=== PATIENT | male | born 1930 | race Caucasian/White ===

== ENCOUNTER 2018-05-20 05:55 | Inpatient (IN) | payer MEDICARE ==
[2018-05-20] MEDS ORDERED: FUROSEMIDE 10 MG/ML 2 ML VIAL IV SCH (09:00)
--- NOTE | 2018-05-20 09:21 | XR ---
EXAMINATION TYPE: XR chest 1V portable DATE OF EXAM: 05/20/2018 HISTORY: Shortness of breath. COMPARISON: 11/04/2013 TECHNIQUE: Single view of the chest is submitted. FINDINGS: Demonstrated are scattered senescent parenchymal change. There is no evidence for focal infiltrate. Pulmonary venous congestion without overt failure. The heart is stable. Hilar and mediastinal structures are within normal limits. Degenerative changes are seen of the dorsal spine. IMPRESSION: 1. Chronic changes without evidence for acute pulmonary disease.
[2018-05-20] MEDS: PANTOPRAZOLE 40 MG TABLET PO SCH (10:05)
[2018-05-20] MEDS: APIXABAN 2.5 MG TABLET PO SCH ×2 (10:05→21:12)
[2018-05-20] MEDS: METOPROLOL TARTRATE 25 MG TAB PO SCH ×2 (10:05→21:12)
[2018-05-20] MEDS: ISOSORBIDE MONONITRATE ER 30 MG TAB.ER.24H PO SCH (10:06)
[2018-05-20] MEDS: VALSARTAN 160 MG TAB PO SCH (10:06)
[2018-05-20 10:09] LABS: Creatine Kinase MB 6.1 ng/mL (0.0-2.4)
[2018-05-20] MEDS: CALCIUM CARB-VIT D 500MG-200UN 1 EACH TAB PO SCH (12:43)
[2018-05-20 12:46] LABS: Glucose,Whole Blood 135 mg/dL (75-99)
--- NOTE | 2018-05-20 13:09 | P.CRDCN ---
History of Present Illness Consult date: 05/20/18 History of present illness: This is a 88-year-old gentleman with history of previous myocardial infarctions , bypass surgery and also stent placement. Patient also has history of previous CVA with right-sided weakness. Patient also is on and decortication therapy. He follows regularly with Dr. Jeter. Apparently yesterday patient appeared to be short of breath. His daughter took him to the emergency room. On the x-ray. It was felt that patient may have pneumonia. Patient is also coughing. Patient was brought in here for further evaluation. Patient has been afebrile since admission here. His blood pressure is 117/76. His aspirin saturations 94%. He is being treated for possible pneumonia. We're asked to see the patient because of elevated first troponin done at [facility]. We don't have any subsequent troponins available at this time. No history of any chest pain. No acute changes on EKGs. We'll continue his current medical therapy. We'll follow his cardiac enzymes studies. 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 UROSTOMY. 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; 10/22/2013 C-DIFF MDRO Source:: Urine-VRE; [id number] Past Surgical History: Appendectomy, Coronary Bypass/CABG, Hernia Repair, Tonsillectomy Additional Past Surgical History / Comment(s): UROSTOMY, WAYNE INGUINAL HERNIA REPAIR, cardiac catheterization with previous PCI's Past Anesthesia/Blood Transfusion Reactions: No Reported Reaction Past Psychological History: No Psychological Hx Reported Smoking Status: Never smoker Past Alcohol Use History: None Reported Past Drug Use History: None Reported - Past Family History Father Additional Family Medical History / Comment(s): MASSIVE HEART ATTACK Brother(s) Additional Family Medical History / Comment(s): MASSIVE HEART ATTACK Mother Family Medical History: Diabetes Mellitus Additional Family Medical History / Comment(s): HARDENING OF ARTERIES Medications and Allergies Home Medications Medication Instructions Recorded Confirmed Type Apixaban [Eliquis] 2.5 mg PO BID #1 tab 11/09/13 05/20/18 Rx Albuterol Nebulized [Ventolin 2.5 mg INHALATION RT-Q6H PRN 05/20/18 05/20/18 History Nebulized] Cholecalciferol [Vitamin D3] 1,000 unit PO DAILY 05/20/18 05/20/18 History Glimepiride [Amaryl] 1 mg PO AC-BRKFST 05/20/18 05/20/18 History Isosorbide Mononitrate ER [Imdur] 30 mg PO DAILY 05/20/18 05/20/18 History Metoprolol Tartrate [Lopressor] 25 mg PO BID 05/20/18 05/20/18 History Omeprazole Magnesium [PriLOSEC OTC] 20 mg PO DAILY 05/20/18 05/20/18 History Valsartan [Diovan] 160 mg PO DAILY 05/20/18 05/20/18 History metFORMIN HCL 500 mg PO HS 05/20/18 05/20/18 History Allergies Allergy/AdvReac Type Severity Reaction Status Date / Time No Known Allergies Allergy Verified 05/20/18 08:58 Physical Exam Vitals: Vital Signs Temp Pulse Resp BP Pulse Ox 05/20/18 11:55 64 16 05/20/18 11:05 64 16 117/78 93 L 05/20/18 08:07 77 18 05/20/18 08:05 97.5 F L 77 18 117/76 94 L Intake and Output 05/19/18 05/20/18 05/20/18 22:59 06:59 14:59 Other: Voiding Method Ileal Conduit (Right) Weight 85.5 kg GENERAL EXAM: Patient is alert and oriented and doesn't appear to be in any acute distress HEENT: Normocephalic. Normal reaction of pupils, equal size, normal range of extraocular motion. No erythema or exudates in the throat. NECK: No masses, no nuchal rigidity. CHEST: No chest wall deformity. LUNGS: Rales at the right base HEART: S1 and S2 normal ABDOMEN: No hepatosplenomegaly, normal bowel sounds, no guarding or rigidity. SKIN: No rashes CENTRAL NERVOUS SYSTEM: Right-sided weakness EXTREMITIES: No cyanosis, clubbing or edema. Results Cardiac Enzymes 05/20/18 Range/Units 09:17 CK-MB (CK-2) 6.1 H (0.0-2.4) ng/mL Current Medications Generic Name Dose Route Start Last Admin Trade Name Freq PRN Reason Stop Dose Admin Apixaban 2.5 mg 05/20/18 09:00 05/20/18 10:05 Eliquis PO 2.5 mg BID ANNA Administration Calcium Carbonate 1 each 05/20/18 09:00 05/20/18 12:43 Oscal 500+D PO 1 each DAILY ANNA Administration Glimepiride 1 mg 05/21/18 07:30 Amaryl PO AC-BRKFST ANNA Ceftriaxone Sodium 1,000 mg/ 50 mls @ 100 mls/hr 05/21/18 09:00 Sodium Chloride IVPB Q24HR ANNA Isosorbide Mononitrate 30 mg 05/20/18 09:00 05/20/18 10:06 Imdur PO 30 mg DAILY ANNA Administration Metformin HCl 500 mg 05/20/18 21:00 Glucophage PO HS ANNA Metoprolol Tartrate 25 mg 05/20/18 09:00 05/20/18 10:05 Lopressor PO 25 mg BID NANA Administration Pantoprazole Sodium 40 mg 05/20/18 09:00 05/20/18 10:05 Protonix PO 40 mg AC-BRKFST ANNA Administration Valsartan 160 mg 05/20/18 09:00 05/20/18 10:06 Diovan PO 160 mg DAILY ANNA Administration Intake and Output 05/19/18 05/20/18 05/20/18 22:59 06:59 14:59 Other: Voiding Method Ileal Conduit (Right) Weight 85.5 kg Patient Weight 05/21/18 06:59 Weight 85.5 kg Assessment and Plan (1) Pneumonia Current Visit: Yes Status: Acute Code(s): J18.9 - PNEUMONIA, UNSPECIFIED ORGANISM SNOMED Code(s): 410452173 (2) CAD (coronary artery disease) Current Visit: No Status: Acute Code(s): I25.10 - ATHSCL HEART DISEASE OF [place] CORONARY ARTERY W/O ANG PCTRS SNOMED Code(s): 407917528 (3) CVA (cerebrovascular accident) Current Visit: No Status: Acute Code(s): I63.9 - CEREBRAL INFARCTION, UNSPECIFIED SNOMED Code(s): 314677910 (4) Ischemic cardiomyopathy Current Visit: No Status: Acute Code(s): I25.5 - ISCHEMIC CARDIOMYOPATHY SNOMED Code(s): 651787744 (5) Elevated troponin Current Visit: Yes Status: Acute Code(s): R74.8 - ABNORMAL LEVELS OF OTHER SERUM ENZYMES SNOMED Code(s): 739808985 (6) Elevated troponin Current Visit: Yes Status: Acute Code(s): R74.8 - ABNORMAL LEVELS OF OTHER SERUM ENZYMES SNOMED Code(s): 165482374 Plan: Patient seemed to be comfortable at this time. Continue current medical therapy. Follow Cardec enzymes studies. Echo Doppler study in a.m.
--- NOTE | 2018-05-20 14:46 | P.HPIM ---
History of Present Illness H&P Date: 05/20/18 Chief Complaint: Difficulty in breathing Patient is a 88-year-old male with a known history of CVA with residual right- sided weakness and dysarthria 5 years ago, chronic atrial fibrillation on anticoagulation, coronary artery disease, CABG and stent placement, hypertension , hyperlipidemia and diabetes type 2 [id number] initially presented to [facility] with her daughter due to complaints of difficulty in breathing. Patient was also having cough with some clear sputum production. Denied any chest pain. No fever no chills. No nausea vomiting or abdominal pain. No leg swelling. Patient has been having runny nose since stroke but no new changes noted. No nausea vomiting or diarrhea. Patient had chest x-ray done at [facility] showed possible pneumonia. Linear scarring or atelectasis is present at the lung bases. EKG showed atrial fibrillation. Patient does follow with cardiology as an outpatient with Dr. Burgos. Patient was also given a dose of antibiotics at [facility] and transferred to [facility] due to slightly elevated troponin level. BNP was 8622. Troponin 0.435, BUN and 19 and creatinine 1.5, lactic acid level III.7, d- dimer level 0.4 and 1 not elevated, WBC 10.5 hemoglobin 13.7 and platelets 331 Patient was given a dose of ceftriaxone and blood cultures were sent at [facility]. Due to elevated troponin level and possible CHF patient was transferred to [facility] for further evaluation by cardiology. Influenza antigen negative. chest x-ray showed pulmonary venous congestion without overt heart failure. Chronic changes. No acute changes noted. patient does not have a history of smoking. Review of Systems Patient is nonverbal and his arthritic due to previous CVA. Unable to provide history at this time. Most of the history was taken from medical records and patient's daughter at bedside. 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 UROSTOMY. 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; 10/22/2013 C-DIFF MDRO Source:: Urine-VRE; [id number] Past Surgical History: Appendectomy, Coronary Bypass/CABG, Hernia Repair, Tonsillectomy Additional Past Surgical History / Comment(s): UROSTOMY, WAYNE INGUINAL HERNIA REPAIR, cardiac catheterization with previous PCI's Past Anesthesia/Blood Transfusion Reactions: No Reported Reaction Past Psychological History: No Psychological Hx Reported Smoking Status: Never smoker Past Alcohol Use History: None Reported Past Drug Use History: None Reported - Past Family History Father Additional Family Medical History / Comment(s): MASSIVE HEART ATTACK Brother(s) Additional Family Medical History / Comment(s): MASSIVE HEART ATTACK Mother Family Medical History: Diabetes Mellitus Additional Family Medical History / Comment(s): HARDENING OF ARTERIES Medications and Allergies Home Medications Medication Instructions Recorded Confirmed Type Apixaban [Eliquis] 2.5 mg PO BID #1 tab 11/09/13 05/20/18 Rx Albuterol Nebulized [Ventolin 2.5 mg INHALATION RT-Q6H PRN 05/20/18 05/20/18 History Nebulized] Cholecalciferol [Vitamin D3] 1,000 unit PO DAILY 05/20/18 05/20/18 History Glimepiride [Amaryl] 1 mg PO AC-BRKFST 05/20/18 05/20/18 History Isosorbide Mononitrate ER [Imdur] 30 mg PO DAILY 05/20/18 05/20/18 History Metoprolol Tartrate [Lopressor] 25 mg PO BID 05/20/18 05/20/18 History Omeprazole Magnesium [PriLOSEC OTC] 20 mg PO DAILY 05/20/18 05/20/18 History Valsartan [Diovan] 160 mg PO DAILY 05/20/18 05/20/18 History metFORMIN HCL 500 mg PO HS 05/20/18 05/20/18 History Allergies Allergy/AdvReac Type Severity Reaction Status Date / Time No Known Allergies Allergy Verified 05/20/18 08:58 Physical Exam Vitals: Vital Signs Temp Pulse Resp BP Pulse Ox 05/20/18 11:55 64 16 05/20/18 11:05 64 16 117/78 93 L 05/20/18 08:07 77 18 05/20/18 08:05 97.5 F L 77 18 117/76 94 L Intake and Output 05/19/18 05/20/18 05/20/18 22:59 06:59 14:59 Other: Voiding Method Ileal Conduit (Right) Weight 85.5 kg PHYSICAL EXAMINATION: Patient is lying in the bed comfortably, no acute distress, awake alert and oriented but cannot communicate.. HEENT: Normocephalic. Neck is supple. Pupils reactive. Nostrils clear. Oral cavity is moist. Ears reveal no drainage. Neck reveals no JVD, carotid bruits, or thyromegaly. CHEST EXAMINATION: Trachea is central. Symmetrical expansion. Bibasilar diminished air entry. Lung min clear to auscultation and percussion. CARDIAC: Normal S1, S2 with no gallops. No murmurs ABDOMEN: Soft. Bowel sounds normal. No organomegaly. No abdominal bruits. Extremities: reveal no edema. No clubbing or cyanosis Neurologically awake, alert,. Right-sided weakness. Dysarthria. Skin: No rash or skin lesions. Psychiatric: Coperative. Could not be assessed completely. Musculoskeletal: No joint swelling or deformity. Normal range of motion. Results Labs: Abnormal Lab Results - Last 24 Hours (Table) 05/20/18 05/20/18 05/20/18 Range/Units 09:17 09:17 12:20 POC Glucose (mg/dL) 135 H (75-99) mg/dL Plasma Lactic Acid Venkata 2.8 H* (0.7-2.0) mmol/L CK-MB (CK-2) 6.1 H (0.0-2.4) ng/mL Thrombosis Risk Factor Assmnt - DVT/VTE Prophylaxis DVT/VTE Prophylaxis: Pharmacologic Prophylaxis ordered - Choose All That Apply Any of the Below Risk Factors Present?: Yes Each Factor Represents 1 point: Heart failure (<1month), Obesity (BMI >25), Serious lung disease incl. pneumonia (< 1month) Each Risk Factor Represents 3 Points: Age 75 years or older Thrombosis Risk Factor Assessment Total Risk Factor Score: 6 Thrombosis Risk Factor Assessment Level: High Risk Assessment and Plan Assessment: Difficulty in breathing likely due to acute CHF. With elevated BNP and pulmonary vascular congestion. Elevated troponin level. Possible right lower lobe pneumonia Lactic acidosis Chronic atrial fibrillation on anticoagulation Coronary artery disease history of stent placement and CABG History of CVA with right-sided weakness and dysarthria. Diabetes type 2 [id number] GERD Hyperlipidemia Hypertension History of [place] DVT prophylaxis. Patient is already on full anticoagulation. Plan: Patient will be continued on aspirin, metoprolol and losartan. Patient will be continued on gentle diuresis. Empiric antibiotics. Follow up troponin trends.. Insulin sliding scale. Continue with Amaryl and hold metformin due to lactic acidosis. Follow-up renal function. Continue with home medications and further recommendations based on the clinical course. Cardiology is on board. 2-D echocardiogram was ordered. Current CODE STATUS is DO NOT RESUSCITATE/DO NOT INTUBATE. Time with Patient: Greater than 30
[2018-05-20 14:56] LABS: Creatine Kinase MB 6.6 ng/mL (0.0-2.4)
[2018-05-20 15:00] LABS: Troponin I 0.907 ng/mL (0.000-0.034)
[2018-05-20] MEDS ORDERED: SODIUM CHLORIDE 0.9% 250 ML IV SCH (15:15)
[2018-05-20 17:51] LABS: Glucose,Whole Blood 153 mg/dL (75-99)
[2018-05-20 20:19] LABS: Glucose,Whole Blood 134 mg/dL (75-99)
[2018-05-20] MEDS ORDERED: metFORMIN 500 MG TAB PO SCH (21:00)
[2018-05-20] MEDS: INSULIN ASPART 100 UNIT/ML 1 ML 10 ML VIAL SQ SCH (21:12)
[2018-05-20 23:16] LABS: Creatine Kinase MB 7.9 ng/mL (0.0-2.4); Troponin I 0.865 ng/mL (0.000-0.034)
[2018-05-21 05:17] LABS: Glucose,Whole Blood 132 mg/dL (75-99)
[2018-05-21] MEDS: GLIMEPIRIDE 1 MG TAB PO SCH (06:23)
[2018-05-21] MEDS: PANTOPRAZOLE 40 MG TABLET PO SCH (06:25)
[2018-05-21] MEDS: INSULIN ASPART 100 UNIT/ML 1 ML 10 ML VIAL SQ SCH ×4 (06:25→21:02)
[2018-05-21 07:00] LABS: Basophils % (A) 1 %; Eosinophils # (A) 0.2 k/uL (0-0.7); Eosinophils % (A) 3 %; HCT 36.9 % (39.0-53.0); HGB 12.2 gm/dL (13.0-17.5); Lymphocytes # (A) 1.8 k/uL (1.0-4.8); Lymphocytes % (A) 23 %; MCH 31.4 pg (25.0-35.0); MCV 95.3 fL (80.0-100.0); Mean Platelet Volume 6.6; Monocytes # (A) 0.6 k/uL (0-1.0); Monocytes % (A) 7 %; Neutrophils % (A) 65 %; Platelet Count 288 k/uL (150-450); RBC 3.87 m/uL (4.30-5.90); RDW 13.3 % (11.5-15.5); WBC 7.7 k/uL (3.8-10.6)
[2018-05-21 07:14] LABS: Calcium 9.3 mg/dL (8.4-10.2); Potassium 4.5 mmol/L (3.5-5.1)
[2018-05-21] MEDS: VALSARTAN 160 MG TAB PO SCH (07:58)
[2018-05-21] MEDS: ISOSORBIDE MONONITRATE ER 30 MG TAB.ER.24H PO SCH (07:59)
[2018-05-21] MEDS: APIXABAN 2.5 MG TABLET PO SCH ×2 (07:59→21:02)
[2018-05-21] MEDS: CALCIUM CARB-VIT D 500MG-200UN 1 EACH TAB PO SCH (07:59)
[2018-05-21] MEDS: METOPROLOL TARTRATE 25 MG TAB PO SCH ×2 (08:00→21:02)
[2018-05-21] MEDS ORDERED: FUROSEMIDE 10 MG/ML 2 ML VIAL IV SCH (09:00)
--- NOTE | 2018-05-21 09:43 | P.PN ---
Progress Note - Text Patient looks comfortable. No respiratory distress at this time. Admitted with shortness of breath did jenaro consulted for abnormal cardiac enzymes of 0.8 and 0.9 with an elevated lactic acid Vitals are stable he is afebrile 97.2F, pulse rate in the 60s to 80s, Blood pressure 130/90 mmHg Breath sounds are reduced bilaterally no rhonchi no crackles Heart sounds are soft Abdomen is soft Extended is warm Impression 88-year-old gentleman with a history of coronary artery disease, old myocardial infarction, Gabe stenting coronary artery bypass grafting and a history of CVA with right-sided weakness Being treated for possible pneumonia he was coughing. Suggest Continue current medications without any changes in his troponins are flat so far out treat him medically for coronary artery disease. I spoke to the nurse and asked that the Lasix be changed from IV to by mouth 40 mg by mouth daily Echo pending
--- NOTE | 2018-05-21 10:25 | ECHOF ---
Referral Reason:CHF MEASUREMENTS -------- HEIGHT: 162.6 cm WEIGHT: 79.8 kg BP: 110/52 RVIDd: 3.3 cm (< 3.3) IVSd: 1.4 cm (0.6 - 1.1) LVIDd: 5.4 cm (3.9 - 5.3) LVPWd: 1.5 cm (0.6 - 1.1) IVSs: 1.5 cm LVIDs: 5.1 cm LVPWs: 1.3 cm LA Diam: 4.8 cm (2.7 - 3.8) LAESV Index (A-L): 42.02 ml/m Ao Diam: 3.5 cm (2.0 - 3.7) AV Cusp: 0.9 cm (1.5 - 2.6) LA Diam: 4.7 cm (2.7 - 3.8) MV EXCURSION: 23.601 mm (> 18.000) MV EF SLOPE: 120 mm/s (70 - 150) EPSS: 0.7 cm MV E Enoch: 0.79 m/s MV DecT: 112 ms MV A Enoch: 0.37 m/s MV E/A Ratio: 2.15 RAP: 5.00 mmHg RVSP: 43.33 mmHg FINDINGS -------- Undetermined rhythm. This was a techncally difficult study with suboptimal views, , Lumason utilized for enhancement of im ages. The left ventricular size is normal. Left ventricular wall thickness is normal. Overall left vent ricular systolic function is moderate-severely impaired with, an EF between 30 - 35 %. Anterseptal Hypokinesis Inferiorlateral Hypokinesis Septal Hypokinesis The right ventricle is normal in size. The left atrium is markedly dilated. LA is severely dilated >40 ml/m2 The right atrial size is normal. 5.0mg OF Lumason UTLIZED: 2 OR MORE WALL SEGMENTS NOT VISUALIZED. There is no evidence of aortic regurgitation. Mild mitral annular calcification present. Govr-[id number]-ekmpavxo mitral regurgitation is present. Mild tricuspid regurgitation present. There is mild pulmonary hypertension. The right ventricular systolic pressure, as measured by Doppler, is 43.33mmHg. There is no pulmonic regurgitation present. The aortic root size is normal. There is no pericardial effusion. CONCLUSIONS -------- 1. This was a techncally difficult study with suboptimal views, , Lumason utilized for enhancement of images. 2. The left ventricular size is normal. 3. Left ventricular wall thickness is normal. 4. Overall left ventricular systolic function is moderate-severely impaired with, an EF between 30 - 35 %. 5. Anterseptal Hypokinesis 6. Inferiorlateral Hypokinesis 7. Septal Hypokinesis 8. The right ventricle is normal in size. 9. The left atrium is markedly dilated. 10. LA is severely dilated >40 ml/m2 11. The right atrial size is normal. 12. 5.0mg OF Lumason UTLIZED: 2 OR MORE WALL SEGMENTS NOT VISUALIZED. 13. Mild mitral annular calcification present. 14. Pvof-wl-lubwhgyu mitral regurgitation is present. 15. Mild tricuspid regurgitation present. 16. There is mild pulmonary hypertension. 17. The right ventricular systolic pressure, as measured by Doppler, is 43.33mmHg. 18. There is no pulmonic regurgitation present. 19. The aortic root size is normal. 20. There is no pericardial effusion. CAPTION WRITER: Niurka Mota RDCS
[2018-05-21 12:17] LABS: Glucose,Whole Blood 123 mg/dL (75-99)
[2018-05-21 14:31] VITALS: BMI 30.2
[2018-05-21 17:08] LABS: Glucose,Whole Blood 143 mg/dL (75-99)
[2018-05-21 20:56] LABS: Glucose,Whole Blood 145 mg/dL (75-99)
--- NOTE | 2018-05-21 23:04 | P.PN ---
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 Patient was also having cough with some clear sputum production. Denied any chest pain. No fever no chills. No nausea vomiting or abdominal pain. No leg swelling. Patient has been having runny nose since stroke but no new changes noted. No nausea vomiting or diarrhea. Patient had chest x-ray done at [facility] showed possible pneumonia. Linear scarring or atelectasis is present at the lung bases. EKG showed atrial fibrillation. Patient does follow with cardiology as an outpatient with Dr. Burgos. Patient was also given a dose of antibiotics at [facility] and transferred to [facility] due to slightly elevated troponin level. BNP was 8622. Troponin 0.435, BUN and 19 and creatinine 1.5, lactic acid level III.7, d- dimer level 0.4 and 1 not elevated, WBC 10.5 hemoglobin 13.7 and platelets 331 Patient was given a dose of ceftriaxone and blood cultures were sent at [facility]. Due to elevated troponin level and possible CHF patient was transferred to [facility] for further evaluation by cardiology. Influenza antigen negative. chest x-ray showed pulmonary venous congestion without overt heart failure. Chronic changes. No acute changes noted. 05/21/2018 Patient denied any complaints of chest pain. Breathing status is improved. Part spreading in physical therapy. IV Lasix has been changed to 40 mg of Lasix by mouth. Patient is being continued on IV antibiotics for possible pneumonia as well. 2-D echocardiogram was done. Otherwise no acute overnight issues. Overall clinically improving. Troponin level is trending down and lactic acidosis resolved. Tolerating oral diet. Patient is a poor historian due to dysarthria and previous history of CVA Current medications Active Medications Generic Name Dose Route Start Last Admin Trade Name Freq PRN Reason Stop Dose Admin Apixaban 2.5 mg 05/20/18 09:00 05/21/18 21:02 Eliquis PO 2.5 mg BID [facility]NA Administration Calcium Carbonate 1 each 05/20/18 09:00 05/21/18 07:59 Oscal 500+D PO Not Given DAILY [facility] Furosemide 40 mg 05/22/18 09:00 Lasix PO DAILY [facility] Glimepiride 1 mg 05/21/18 07:30 05/21/18 06:23 Amaryl PO 1 mg AC-BRKFST ANNA Administration Ceftriaxone Sodium 1,000 mg/ 50 mls @ 100 mls/hr 05/21/18 09:00 05/21/18 08: 05 Sodium Chloride IVPB 100 mls/hr Q24HR [facility] Administration Insulin Aspart 0 unit 05/20/18 21:00 05/21/18 21:02 Novolog SQ 1 unit ACHS [facility] Administration Protocol Isosorbide Mononitrate 30 mg 05/20/18 09:00 05/21/18 07:59 Imdur PO 30 mg DAILY [facility] Administration Metoprolol Tartrate 25 mg 05/20/18 09:00 05/21/18 21:02 Lopressor PO 25 mg BID ANNA Administration Pantoprazole Sodium 40 mg 05/20/18 09:00 05/21/18 06:25 Protonix PO 40 mg AC-BRKFST ANNA Administration Valsartan 160 mg 05/20/18 09:00 05/21/18 07:58 Diovan PO 160 mg DAILY [facility]NA Administration Objective - Vital Signs Vital signs: Vital Signs Temp 98.4 F 05/21/18 20:00 Pulse 84 05/21/18 20:00 Resp 18 05/21/18 20:00 BP 107/54 05/21/18 20:00 Pulse Ox 93 L 05/21/18 20:00 Intake & Output 05/21/18 05/21/18 05/22/18 06:59 18:59 06:59 Intake Total 742 Output Total 0 1200 Balance 0 -458 Weight 80 kg 80 kg Intake: Intake, IV Titration 50 Amount cefTRIAXone 1,000 mg In 50 Sodium Chloride 0.9% 50 ml @ 100 mls/hr IVPB Q24HR [facility] Rx#:[id number] Oral 692 Output: Urine 0 1200 Other: Voiding Method Ileal Conduit (Right) Ileal Conduit (Right) Ileal Conduit ( Right) # Voids 0 - Exam PHYSICAL EXAMINATION: Patient is lying in the bed comfortably, no acute distress, awake alert and oriented but cannot communicate.. HEENT: Normocephalic. Neck is supple. Pupils reactive. Nostrils clear. Oral cavity is moist. Ears reveal no drainage. Neck reveals no JVD, carotid bruits, or thyromegaly. CHEST EXAMINATION: Trachea is central. Symmetrical expansion. Bibasilar diminished air entry. Lung min clear to auscultation and percussion. CARDIAC: Normal S1, S2 with no gallops. No murmurs ABDOMEN: Soft. Bowel sounds normal. No organomegaly. No abdominal bruits. Extremities: reveal no edema. No clubbing or cyanosis Neurologically awake, alert,. Right-sided weakness. Dysarthria. Skin: No rash or skin lesions. Psychiatric: Coperative. Could not be assessed completely. Musculoskeletal: No joint swelling or deformity. Normal range of motion. - Labs CBC & Chem 7: 05/21/18 05:42 05/21/18 05:42 Labs: Abnormal Lab Results - Last 24 Hours (Table) 05/20/18 05/20/18 05/21/18 Range/Units 22:02 22:02 05:16 RBC (4.30-5.90) m/uL Hgb (13.0-17.5) gm/dL Hct (39.0-53.0) % Glucose (74-99) mg/dL POC Glucose (mg/dL) 132 H (75-99) mg/dL Hemoglobin A1c 7.0 H (4.0-6.0) % CK-MB (CK-2) 7.9 H (0.0-2.4) ng/mL Troponin I 0.865 H* (0.000-0.034) ng/mL 05/21/18 05/21/18 05/21/18 Range/Units 05:42 05:42 12:02 RBC 3.87 L (4.30-5.90) m/uL Hgb 12.2 L (13.0-17.5) gm/dL Hct 36.9 L (39.0-53.0) % Glucose 131 H (74-99) mg/dL POC Glucose (mg/dL) 123 H (75-99) mg/dL Hemoglobin A1c (4.0-6.0) % CK-MB (CK-2) (0.0-2.4) ng/mL Troponin I (0.000-0.034) ng/mL 12/26/18 12/26/18 Range/Units 16:48 20:54 RBC (4.30-5.90) m/uL Hgb (13.0-17.5) gm/dL Hct (39.0-53.0) % Glucose (74-99) mg/dL POC Glucose (mg/dL) 143 H 145 H (75-99) mg/dL Hemoglobin A1c (4.0-6.0) % CK-MB (CK-2) (0.0-2.4) ng/mL Troponin I (0.000-0.034) ng/mL Assessment and Plan Assessment: Difficulty in breathing likely due to acute CHF. With elevated BNP and pulmonary vascular congestion. Elevated troponin level. Possible right lower lobe pneumonia Lactic acidosis Chronic atrial fibrillation on anticoagulation Coronary artery disease history of stent placement and CABG History of CVA with right-sided weakness and dysarthria. Diabetes type 2 [id number]-[id number] GERD Hyperlipidemia Hypertension History of IN DVT prophylaxis. Patient is already on full anticoagulation. Plan: Patient will be continued on aspirin, metoprolol and losartan. Patient will be continued on Lasix changed to by mouth.. Empiric antibiotics. Follow up troponin trends.. Insulin sliding scale. Continue with Amaryl and hold metformin due to lactic acidosis. Follow-up renal function. Continue with home medications and further recommendations based on the clinical course. Cardiology is on board. 2-D echocardiogram was ordered. Current CODE STATUS is DO NOT RESUSCITATE/DO NOT INTUBATE. Time with Patient: Greater than 30
[2018-05-22 06:05] LABS: Glucose,Whole Blood 122 mg/dL (75-99)
[2018-05-22] MEDS: INSULIN ASPART 100 UNIT/ML 1 ML 10 ML VIAL SQ SCH ×4 (06:10→22:03)
[2018-05-22] MEDS: PANTOPRAZOLE 40 MG TABLET PO SCH (06:14)
[2018-05-22] MEDS: GLIMEPIRIDE 1 MG TAB PO SCH (06:14)
[2018-05-22] MEDS: METOPROLOL TARTRATE 25 MG TAB PO SCH (07:53)
[2018-05-22] MEDS: APIXABAN 2.5 MG TABLET PO SCH ×2 (07:53→20:10)
[2018-05-22] MEDS: FUROSEMIDE 40 MG TAB PO SCH (09:40)
[2018-05-22] MEDS: CALCIUM CARB-VIT D 500MG-200UN 1 EACH TAB PO SCH (09:40)
[2018-05-22] MEDS: ISOSORBIDE MONONITRATE ER 30 MG TAB.ER.24H PO SCH (09:40)
--- NOTE | 2018-05-22 11:30 | CDI ---
Documentation Clarification Form Date: 05/22/2018 11:21:04 AM From: Lydia Montano CCS, CCDS Admit Date: 05/20/2018 8:01:00 AM Patient Name: Aric Corey Visit Number: [id number] Discharge Date: ATTENTION: The Clinical Documentation Specialists (CDI) and [facility] Coding Staff appreciate your assistance in clarifying documentation. Please respond to the clarification below the line at the bottom and electronically sign. The CDI & [facility] Coding staff will review the response and follow-up if needed. Please note: Queries are made part of the Legal Health Record. If you have any questions, please contact the author of this message via ITS. Dr. Holden Camacho: CHF is documented in the History & Physical without further specificity. History/Risk Factors: CVA w/rt side weakness & dysarthria, Hypertension, Hypertensive CAD, [place] sp CABG & stents & DM II. Clinical Indicators: Presented as transfer from [facility], c/o [facility]. Transferred due to elevated troponins, elevated BNP & lactic acidosis. Diagnosed with pneumonia & CHF. VS: T 97.5*, P 77, R 18 (sob), BP 117/76, PO 94 ra BNP: 8622 Echocardiogram Results: EF 30-35% systolic mod-severely impaired, Mild-mod MR, Mild TR, mild pulm htn. Chest X Ray: Possible pneumonia, vascular congestion. Treatment: IV Lasix, IV antibiotics, IV fl bolus x1, admit to telemetry. In your professional opinion, can you please clarify the acuity and type of CHF if known? Systolic Heart Failure: o Acute o Chronic o Acute on Chronic Unable to Determine Other, please specify (Last Revision: August 2017) Acute CHF with systolic dysfunction MTDD
[2018-05-22 12:20] LABS: Glucose,Whole Blood 174 mg/dL (75-99)
--- NOTE | 2018-05-22 13:45 | P.PN ---
Subjective Patient is lying in bed comfortable. He did sit up at the edge of the bed. He gets a little dizzy when he becomes upright but thereafter things settle down I reviewed his echo shows a reduced LV systolic function of 30-35% I also reviewed the twelve-lead ECG which was labeled as V. tach. His avoid couplets tachycardia likely aberrant conduction with a typical right bundle branch block morphology left anterior fascicular block morphology On examination breath sounds are reduced bilaterally with bilateral mild rhonchi No respiratory distress patient looks comfortable Sounds are soft and regular no murmurs no gallops. Abdomen is soft nontender Extremities are warm Blood pressure 108/60 mmHg respirations 20 afebrile 97.5F pulse rate in the 70s Suggest I would recommend changing from regular metoprolol to Toprol-XL, 75 mrem daily to be taken the morning for better rate control and the fact that he has LV dysfunction with reduced LV systolic function. Hopefully this will also provide smoother better rate control for atrial fibrillation Objective - Vital Signs Vital signs: Vital Signs Temp 97.5 F L 05/22/18 11:52 Pulse 73 05/22/18 11:52 Resp 20 05/22/18 11:52 BP 108/69 05/22/18 11:52 Pulse Ox 98 05/22/18 11:52 Intake & Output 05/21/18 05/22/18 05/22/18 18:59 06:59 18:59 Intake Total 742 590 Output Total 1200 300 950 Balance -458 -300 -360 Weight 80 kg Intake: IV 50 cefTRIAXone 1,000 mg In 50 Sodium Chloride 0.9% 50 ml @ 100 mls/hr IVPB Q24HR [facility] Rx#:[id number] Intake, IV Titration 50 Amount cefTRIAXone 1,000 mg In 50 Sodium Chloride 0.9% 50 ml @ 100 mls/hr IVPB Q24HR [facility] Rx#:[id number] Oral 692 540 Output: Urine 1200 300 950 Other: Voiding Method Ileal Conduit (Right) Ileal Conduit (Right) Ileal Conduit ( Right) - Labs CBC & Chem 7: 05/21/18 05:42 05/21/18 05:42 Labs: Abnormal Lab Results - Last 24 Hours (Table) 05/21/18 05/21/18 05/22/18 Range/Units 16:48 20:54 06:04 POC Glucose (mg/dL) 143 H 145 H 122 H (75-99) mg/dL 05/22/18 Range/Units 12:00 POC Glucose (mg/dL) 174 H (75-99) mg/dL
[2018-05-22] MEDS ORDERED: DILTIAZEM DRIP BOLUS FROM BAG 1 MG SOLN IV ONE (16:03)
[2018-05-22 16:16] LABS: Glucose,Whole Blood 129 mg/dL (75-99)
[2018-05-22] MEDS: VALSARTAN 160 MG TAB PO SCH (16:31)
[2018-05-22] MEDS: DILTIAZEM 50 MG in SODIUM CHLORIDE 0.9% 40 ML IV SCH ×2 (17:02→20:02)
[2018-05-22 21:00] LABS: Glucose,Whole Blood 137 mg/dL (75-99)
[2018-05-22] MEDS ORDERED: DEXTROSE 5% IN WATER 100 ML with AMIODARONE 150 MG IV ONE (22:50)
[2018-05-22] MEDS: AMIODARONE 450 MG in DEXTROSE 5% IN WATER 250 ML IV SCH ×2 (23:27)
--- NOTE | 2018-05-23 00:14 | P.PN ---
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 Patient was also having cough with some clear sputum production. Denied any chest pain. No fever no chills. No nausea vomiting or abdominal pain. No leg swelling. Patient has been having runny nose since stroke but no new changes noted. No nausea vomiting or diarrhea. Patient had chest x-ray done at [facility] showed possible pneumonia. Linear scarring or atelectasis is present at the lung bases. EKG showed atrial fibrillation. Patient does follow with cardiology as an outpatient with Dr. Burgos. Patient was also given a dose of antibiotics at [facility] and transferred to [facility] due to slightly elevated troponin level. BNP was 8622. Troponin 0.435, BUN and 19 and creatinine 1.5, lactic acid level III.7, d- dimer level 0.4 and 1 not elevated, WBC 10.5 hemoglobin 13.7 and platelets 331 Patient was given a dose of ceftriaxone and blood cultures were sent at [facility]. Due to elevated troponin level and possible CHF patient was transferred to [facility] for further evaluation by cardiology. Influenza antigen negative. chest x-ray showed pulmonary venous congestion without overt heart failure. Chronic changes. No acute changes noted. 05/21/2018 Patient denied any complaints of chest pain. Breathing status is improved. Part spreading in physical therapy. IV Lasix has been changed to 40 mg of Lasix by mouth. Patient is being continued on IV antibiotics for possible pneumonia as well. 2-D echocardiogram was done. Otherwise no acute overnight issues. Overall clinically improving. Troponin level is trending down and lactic acidosis resolved. Tolerating oral diet. 05/22/2018 Patient denied any complaints of chest pain or shortness of breath. Part spreading in physical therapy. Heart rate is better controlled. Otherwise patient was found have atrial fibrillation and the telemetry monitoring. Metoprolol has been changed to Toprol-XL per cardiology. Continued on empiric antibiotics. Overall clinically improving. Patient wants to be discharged home. Patient is a poor historian due to dysarthria and previous history of CVA Current medications reviewed. Active Medications Objective - Vital Signs Vital signs: Vital Signs Temp 97.9 F 05/22/18 23:22 Pulse 142 H 05/22/18 23:22 Resp 15 05/22/18 23:22 BP 105/69 05/22/18 23:22 Pulse Ox 98 05/22/18 23:22 Intake & Output 05/22/18 05/22/18 05/23/18 06:59 18:59 06:59 Intake Total 830 30 Output Total 300 950 700 Balance -300 -120 -670 Intake: IV 50 cefTRIAXone 1,000 mg In 50 Sodium Chloride 0.9% 50 ml @ 100 mls/hr IVPB Q24HR [facility] Rx#:[id number] Intake, IV Titration 30 Amount Diltiazem 50 mg In Sodium 30 Chloride 0.9% 40 ml @ 10 MG/HR 10 mls/hr IV .Q5H [facility] Rx#:[id number] Oral 780 Output: Urine 300 950 700 Other: Voiding Method Ileal Conduit (Right) Ileal Conduit (Right) Ileal Conduit ( Right) - Exam PHYSICAL EXAMINATION: Patient is lying in the bed comfortably, no acute distress, awake alert and oriented but cannot communicate.. HEENT: Normocephalic. Neck is supple. Pupils reactive. Nostrils clear. Oral cavity is moist. Ears reveal no drainage. Neck reveals no JVD, carotid bruits, or thyromegaly. CHEST EXAMINATION: Trachea is central. Symmetrical expansion. Bibasilar diminished air entry. Lung min clear to auscultation and percussion. CARDIAC: Normal S1, S2 with no gallops. No murmurs ABDOMEN: Soft. Bowel sounds normal. No organomegaly. No abdominal bruits. Extremities: reveal no edema. No clubbing or cyanosis Neurologically awake, alert,. Right-sided weakness. Dysarthria. Skin: No rash or skin lesions. Psychiatric: Coperative. Could not be assessed completely. Musculoskeletal: No joint swelling or deformity. Normal range of motion. - Labs CBC & Chem 7: 05/21/18 05:42 05/21/18 05:42 Labs: Abnormal Lab Results - Last 24 Hours (Table) 05/22/18 05/22/18 05/22/18 Range/Units 06:04 12:00 16:14 POC Glucose (mg/dL) 122 H 174 H 129 H (75-99) mg/dL 05/22/18 Range/Units 20:59 POC Glucose (mg/dL) 137 H (75-99) mg/dL Assessment and Plan Assessment: Difficulty in breathing likely due to acute CHF systolic dysfunction. With elevated BNP and pulmonary vascular congestion. Elevated troponin level. Unlikely ACS. Possible right lower lobe pneumonia Lactic acidosis Chronic atrial fibrillation on anticoagulation Coronary artery disease history of stent placement and CABG History of CVA with right-sided weakness and dysarthria. Diabetes type 2 ejb-ehikbeu-jbvbnufkw GERD Hyperlipidemia Hypertension History of PR DVT prophylaxis. Patient is already on full anticoagulation. Plan: Patient will be continued on aspirin, metoprolol and losartan. Patient will be continued on Lasix changed to by mouth.. Empiric antibiotics. Follow up troponin trends.. Insulin sliding scale. Continue with Amaryl and hold metformin due to lactic acidosis. Follow-up renal function. Continue with home medications and further recommendations based on the clinical course. Cardiology is on board. 2-D echocardiogram was ordered. Ejection fraction showed 30-35% Current CODE STATUS is DO NOT RESUSCITATE/DO NOT INTUBATE. Time with Patient: Greater than 30
[2018-05-23 06:01] LABS: Glucose,Whole Blood 144 mg/dL (75-99)
[2018-05-23] MEDS ORDERED: DILTIAZEM 50 MG in SODIUM CHLORIDE 0.9% 40 ML IV SCH (06:15)
[2018-05-23] MEDS: PANTOPRAZOLE 40 MG TABLET PO SCH (06:34)
[2018-05-23] MEDS: AMIODARONE 450 MG in DEXTROSE 5% IN WATER 250 ML IV SCH ×6 (06:34→22:16)
[2018-05-23] MEDS: DILTIAZEM 50 MG in SODIUM CHLORIDE 0.9% 40 ML IV SCH ×2 (06:34→11:07)
[2018-05-23] MEDS: INSULIN ASPART 100 UNIT/ML 1 ML 10 ML VIAL SQ SCH ×4 (06:34→22:16)
[2018-05-23] MEDS: GLIMEPIRIDE 1 MG TAB PO SCH (07:58)
[2018-05-23] MEDS: METOPROLOL SUCCINATE (ER) 50 MG TAB.ER.24H PO SCH (08:31)
[2018-05-23] MEDS: FUROSEMIDE 40 MG TAB PO SCH (08:31)
[2018-05-23] MEDS: ISOSORBIDE MONONITRATE ER 30 MG TAB.ER.24H PO SCH (08:31)
[2018-05-23] MEDS: CALCIUM CARB-VIT D 500MG-200UN 1 EACH TAB PO SCH (08:31)
[2018-05-23] MEDS: APIXABAN 2.5 MG TABLET PO SCH ×2 (08:31→20:21)
[2018-05-23] MEDS: VALSARTAN 160 MG TAB PO SCH (08:31)
[2018-05-23 09:28] LABS: Calcium 9.5 mg/dL (8.4-10.2); Magnesium 1.9 mg/dL (1.6-2.3); Potassium 4.3 mmol/L (3.5-5.1)
[2018-05-23 11:25] LABS: Glucose,Whole Blood 143 mg/dL (75-99)
--- NOTE | 2018-05-23 12:24 | P.PN ---
Subjective Progress Note Date: 05/23/18 This is an 88-year-old gentleman with history of prior myocardial infarction, bypass surgery and stent placement, history of prior CVA who follows with Dr. Burgos in the office. He was initially admitted to the hospital with symptoms of shortness of breath and was found to have pneumonia. Patient was seen yesterday by Dr. Tolentino, his EKG and rhythm strips were reviewed, it was felt that the patient had a right bundle branch block pattern with aberrancy. Yesterday he was initiated on a Cardizem drip because the heart rate was persistently in the 140 range. Subsequent to that through the night last night he was initiated on IV amiodarone continues to be on IV amiodarone today. Heart rate today in the 120 to 1:30. We will continue current dose of IV amiodarone changing over to oral amiodarone once that is finished. We will obtain an EKG in the morning. Patient does not convert to normal sinus rhythm with the amiodarone, we may consider elective cardioversion tomorrow. Objective - Vital Signs Vital signs: Vital Signs Temp 98.0 F 05/23/18 11:45 Pulse 140 H 05/23/18 11:46 Resp 14 05/23/18 11:46 BP 84/54 05/23/18 11:45 Pulse Ox 96 05/23/18 11:45 Intake & Output 05/22/18 05/23/18 05/23/18 18:59 06:59 18:59 Intake Total 830 253.585 45.5 Output Total 950 950 Balance -120 -696.415 45.5 Weight 82 kg Intake: IV 50 cefTRIAXone 1,000 mg In 50 Sodium Chloride 0.9% 50 ml @ 100 mls/hr IVPB Q24HR [facility] Rx#:[id number] Intake, IV Titration 253.585 45.5 Amount Amiodarone 450 mg In 223.585 Dextrose 5% in Water 250 ml @ 1 MG/MIN 33.33 mls/ hr IV .Q7H31M [facility] Rx#: [id number] Diltiazem 50 mg In Sodium 30 Chloride 0.9% 40 ml @ 10 MG/HR 10 mls/hr IV .Q5H [facility] Rx#:[id number] Diltiazem 50 mg In Sodium 45.5 Chloride 0.9% 40 ml @ 10 MG/HR 10 mls/hr IV .Q5H [facility] Rx#:[id number] Oral 780 0 Output: Urine 950 950 Other: Voiding Method Ileal Conduit (Right) Ileal Conduit (Right) Ileal Conduit ( Right) # Voids 0 - Exam GENERAL EXAM: Patient is alert and oriented and doesn't appear to be in any acute distress HEENT: Normocephalic. Normal reaction of pupils, equal size, normal range of extraocular motion. No erythema or exudates in the throat. NECK: No masses, no nuchal rigidity. CHEST: No chest wall deformity. LUNGS: Rales at the right base HEART: S1 and S2 normal ABDOMEN: No hepatosplenomegaly, normal bowel sounds, no guarding or rigidity. SKIN: No rashes CENTRAL NERVOUS SYSTEM: Right-sided weakness EXTREMITIES: No cyanosis, clubbing or edema. 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 If the patient does not convert to normal sinus rhythm we may consider elective cardioversion tomorrow. We will obtain a morning EKG.. DNP note has been reviewed, I agree with a documented findings and plan of care. Patient was seen and examined.
[2018-05-23 16:55] LABS: Glucose,Whole Blood 151 mg/dL (75-99)
[2018-05-23 20:50] LABS: Glucose,Whole Blood 152 mg/dL (75-99)
[2018-05-24 06:18] LABS: Glucose,Whole Blood 127 mg/dL (75-99)
[2018-05-24] MEDS: INSULIN ASPART 100 UNIT/ML 1 ML 10 ML VIAL SQ SCH ×4 (06:26→21:11)
[2018-05-24] MEDS: PANTOPRAZOLE 40 MG TABLET PO SCH (07:02)
[2018-05-24] MEDS: APIXABAN 2.5 MG TABLET PO SCH (08:08)
[2018-05-24] MEDS: VALSARTAN 160 MG TAB PO SCH (08:08)
[2018-05-24] MEDS: ISOSORBIDE MONONITRATE ER 30 MG TAB.ER.24H PO SCH (08:08)
[2018-05-24] MEDS: CALCIUM CARB-VIT D 500MG-200UN 1 EACH TAB PO SCH (08:08)
[2018-05-24] MEDS: METOPROLOL SUCCINATE (ER) 50 MG TAB.ER.24H PO SCH (08:08)
[2018-05-24] MEDS: FUROSEMIDE 40 MG TAB PO SCH (08:08)
[2018-05-24] MEDS: GLIMEPIRIDE 1 MG TAB PO SCH (08:09)
[2018-05-24] MEDS ORDERED: APIXABAN 2.5 MG TABLET PO ONE (08:53)
[2018-05-24] MEDS: DEXTROSE 5% IN WATER 250 ML with AMIODARONE 450 MG IV SCH (11:18)
[2018-05-24 11:53] LABS: Glucose,Whole Blood 150 mg/dL (75-99)
--- NOTE | 2018-05-24 13:36 | P.PN ---
Subjective Patient remains in atrial flutter and intermittently with RVR he is on IV amiodarone for the last 2 days now and has not converted sinus rhythm with IV Cardizem has been discontinued He is lying comfortably in bed he looks very comfortable in no respiratory distress On examination afebrile 97.7F pulse rate in the 60s to 120 beats a minute Blood pressure 130/81 mmHg Breath sounds but reduced bilaterally no rhonchi no crackles Heart sounds were S2 of irregular no murmurs Abdomen soft nontender Extremities are warm no edema Impression Atrial flutter with RVR persistent Suggest Continue IV amiodarone and affect tomorrow if he does not convert sinus rhythm and I will cardiovert him. The cardio version is being scheduled I'm increasing the dose of ELIQUIS to 5 mg twice daily today Objective - Vital Signs Vital signs: Vital Signs Temp 97.7 F 05/24/18 11:45 Pulse 63 05/24/18 11:45 Resp 18 05/24/18 11:45 BP 102/65 05/24/18 11:45 Pulse Ox 97 05/24/18 11:45 Intake & Output 05/23/18 05/24/18 05/24/18 18:59 06:59 18:59 Intake Total 1158.5 250 240 Output Total 400 200 Balance 758.5 50 240 Weight 83 kg Intake: IV 100 cefTRIAXone 1,000 mg In 100 Sodium Chloride 0.9% 50 ml @ 100 mls/hr IVPB Q24HR [facility] Rx#:[id number] Intake, IV Titration 224.5 250 Amount Amiodarone 450 mg In 250 Dextrose 5% in Water 250 ml @ 1 MG/MIN 33.33 mls/ hr IV .Q7H31M [facility] Rx#: [id number] Dextrose 5% in Water 100 99 ml @ 618 mls/hr IV .Q10M ONE with Amiodarone 150 mg Rx#:[id number] Diltiazem 50 mg In Sodium 80 Chloride 0.9% 40 ml @ 10 MG/HR 10 mls/hr IV .Q5H [facility] Rx#:[id number] Diltiazem 50 mg In Sodium 45.5 Chloride 0.9% 40 ml @ 10 MG/HR 10 mls/hr IV .Q5H [facility] Rx#:[id number] Oral 834 240 Output: Urine 400 200 Other: Voiding Method Ileal Conduit (Right) Ileal Conduit (Right) Ileal Conduit ( Right) # Voids 0 # Bowel Movements 1 - Labs CBC & Chem 7: 05/21/18 05:42 05/23/18 08:55 Labs: Abnormal Lab Results - Last 24 Hours (Table) 05/23/18 05/23/18 05/24/18 Range/Units 16:51 20:49 06:14 POC Glucose (mg/dL) 151 H 152 H 127 H (75-99) mg/dL 05/24/18 Range/Units 11:45 POC Glucose (mg/dL) 150 H (75-99) mg/dL
--- NOTE | 2018-05-24 14:30 | P.PN ---
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 Patient was also having cough with some clear sputum production. Denied any chest pain. No fever no chills. No nausea vomiting or abdominal pain. No leg swelling. Patient has been having runny nose since stroke but no new changes noted. No nausea vomiting or diarrhea. Patient had chest x-ray done at [facility] showed possible pneumonia. Linear scarring or atelectasis is present at the lung bases. EKG showed atrial fibrillation. Patient does follow with cardiology as an outpatient with Dr. Burgos. Patient was also given a dose of antibiotics at [facility] and transferred to [facility] due to slightly elevated troponin level. BNP was 8622. Troponin 0.435, BUN and 19 and creatinine 1.5, lactic acid level III.7, d- dimer level 0.4 and 1 not elevated, WBC 10.5 hemoglobin 13.7 and platelets 331 Patient was given a dose of ceftriaxone and blood cultures were sent at [facility]. Due to elevated troponin level and possible CHF patient was transferred to [facility] for further evaluation by cardiology. Influenza antigen negative. chest x-ray showed pulmonary venous congestion without overt heart failure. Chronic changes. No acute changes noted. 05/21/2018 Patient denied any complaints of chest pain. Breathing status is improved. Part spreading in physical therapy. IV Lasix has been changed to 40 mg of Lasix by mouth. Patient is being continued on IV antibiotics for possible pneumonia as well. 2-D echocardiogram was done. Otherwise no acute overnight issues. Overall clinically improving. Troponin level is trending down and lactic acidosis resolved. Tolerating oral diet. 05/22/2018 Patient denied any complaints of chest pain or shortness of breath. Part spreading in physical therapy. Heart rate is better controlled. Otherwise patient was found have atrial fibrillation and the telemetry monitoring. Metoprolol has been changed to Toprol-XL per cardiology. Continued on empiric antibiotics. Overall clinically improving. Patient wants to be discharged home. 05/23/2018 Patient still having atrial fibrillation. Was started on amiodarone drip as per cardiology. If the patient does not convert to sinus rhythm, planning for cardioversion. Patient denied any complains of chest pain or shortness of breath. Says he is feeling well. No fever no chills. No overnight acute issues. Patient is a poor historian due to dysarthria and previous history of CVA Current medications reviewed. Active Medications Objective - Vital Signs Vital signs: Vital Signs Temp 98.1 F 05/23/18 19:44 Pulse 50 L 05/23/18 19:44 Resp 17 05/23/18 19:44 BP 97/55 05/23/18 19:44 Pulse Ox 97 05/23/18 19:44 Intake & Output 05/23/18 05/23/18 05/24/18 06:59 18:59 06:59 Intake Total 200.781 1469.5 Output Total 950 400 Balance -696.415 758.5 Weight 82 kg Intake: IV 100 cefTRIAXone 1,000 mg In 100 Sodium Chloride 0.9% 50 ml @ 100 mls/hr IVPB Q24HR ANNA Rx#:[id number] Intake, IV Titration 253.585 224.5 Amount Amiodarone 450 mg In 223.585 Dextrose 5% in Water 250 ml @ 1 MG/MIN 33.33 mls/ hr IV .Q7H31M ANNA Rx#: [id number] Dextrose 5% in Water 100 99 ml @ 618 mls/hr IV .Q10M ONE with Amiodarone 150 mg Rx#:[id number] Diltiazem 50 mg In Sodium 30 Chloride 0.9% 40 ml @ 10 MG/HR 10 mls/hr IV .Q5H ANNA Rx#:[id number] Diltiazem 50 mg In Sodium 80 Chloride 0.9% 40 ml @ 10 MG/HR 10 mls/hr IV .Q5H ANNA Rx#:[id number] Diltiazem 50 mg In Sodium 45.5 Chloride 0.9% 40 ml @ 10 MG/HR 10 mls/hr IV .Q5H ANNA Rx#:[id number] Oral 834 Output: Urine 950 400 Other: Voiding Method Ileal Conduit (Right) Ileal Conduit (Right) Ileal Conduit ( Right) # Voids 0 - Exam PHYSICAL EXAMINATION: Patient is lying in the bed comfortably, no acute distress, awake alert and oriented but cannot communicate.. HEENT: Normocephalic. Neck is supple. Pupils reactive. Nostrils clear. Oral cavity is moist. Ears reveal no drainage. Neck reveals no JVD, carotid bruits, or thyromegaly. CHEST EXAMINATION: Trachea is central. Symmetrical expansion. Bibasilar diminished air entry. Lung min clear to auscultation and percussion. CARDIAC: Normal S1, S2 with no gallops. No murmurs ABDOMEN: Soft. Bowel sounds normal. No organomegaly. No abdominal bruits. Extremities: reveal no edema. No clubbing or cyanosis Neurologically awake, alert and oriented,. Right-sided weakness. Dysarthria. Skin: No rash or skin lesions. Psychiatric: Coperative. Could not be assessed completely. Musculoskeletal: No joint swelling or deformity. Normal range of motion. - Labs CBC & Chem 7: 05/21/18 05:42 05/23/18 08:55 Labs: Abnormal Lab Results - Last 24 Hours (Table) 05/23/18 05/23/18 05/23/18 Range/Units 05:59 08:55 11:20 Sodium 136 L (137-145) mmol/L Glucose 154 H (74-99) mg/dL POC Glucose (mg/dL) 144 H 143 H (75-99) mg/dL 05/23/18 05/23/18 Range/Units 16:51 20:49 Sodium (137-145) mmol/L Glucose (74-99) mg/dL POC Glucose (mg/dL) 151 H 152 H (75-99) mg/dL Assessment and Plan Assessment: Atrial flutter with RVR. Patient was started on amiodarone drip. Cardiology is following. Difficulty in breathing likely due to acute CHF systolic dysfunction. With elevated BNP and pulmonary vascular congestion. Improved now Elevated troponin level. Unlikely ACS. Possible right lower lobe pneumonia Lactic acidosis. Resolved Chronic atrial fibrillation on anticoagulation Coronary artery disease history of stent placement and CABG History of CVA with right-sided weakness and dysarthria. Diabetes type 2 [id number] GERD Hyperlipidemia Hypertension History of [place] DVT prophylaxis. Patient is already on full anticoagulation. Plan: Patient will be continued on aspirin, metoprolol and losartan. Patient will be continued on Lasix changed to by mouth.. Empiric antibiotics. Follow up troponin trends.. Insulin sliding scale. Continue with Amaryl and hold metformin due to lactic acidosis. Follow-up renal function. Continue with home medications and further recommendations based on the clinical course. Cardiology is on board. 2-D echocardiogram was ordered. Ejection fraction showed 30-35% Current CODE STATUS is DO NOT RESUSCITATE/DO NOT INTUBATE. Time with Patient: Greater than 30
[2018-05-24 16:51] LABS: Glucose,Whole Blood 147 mg/dL (75-99)
[2018-05-24] MEDS: APIXABAN 5 MG TAB PO SCH (20:43)
[2018-05-24 21:08] LABS: Glucose,Whole Blood 103 mg/dL (75-99)
--- NOTE | 2018-05-24 23:38 | P.PN ---
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 Patient was also having cough with some clear sputum production. Denied any chest pain. No fever no chills. No nausea vomiting or abdominal pain. No leg swelling. Patient has been having runny nose since stroke but no new changes noted. No nausea vomiting or diarrhea. Patient had chest x-ray done at [facility] showed possible pneumonia. Linear scarring or atelectasis is present at the lung bases. EKG showed atrial fibrillation. Patient does follow with cardiology as an outpatient with Dr. Burgos. Patient was also given a dose of antibiotics at [facility] and transferred to [facility] due to slightly elevated troponin level. BNP was 8622. Troponin 0.435, BUN and 19 and creatinine 1.5, lactic acid level III.7, d- dimer level 0.4 and 1 not elevated, WBC 10.5 hemoglobin 13.7 and platelets 331 Patient was given a dose of ceftriaxone and blood cultures were sent at [facility]. Due to elevated troponin level and possible CHF patient was transferred to [facility] for further evaluation by cardiology. Influenza antigen negative. chest x-ray showed pulmonary venous congestion without overt heart failure. Chronic changes. No acute changes noted. 05/21/2018 Patient denied any complaints of chest pain. Breathing status is improved. Part spreading in physical therapy. IV Lasix has been changed to 40 mg of Lasix by mouth. Patient is being continued on IV antibiotics for possible pneumonia as well. 2-D echocardiogram was done. Otherwise no acute overnight issues. Overall clinically improving. Troponin level is trending down and lactic acidosis resolved. Tolerating oral diet. 05/22/2018 Patient denied any complaints of chest pain or shortness of breath. Part spreading in physical therapy. Heart rate is better controlled. Otherwise patient was found have atrial fibrillation and the telemetry monitoring. Metoprolol has been changed to Toprol-XL per cardiology. Continued on empiric antibiotics. Overall clinically improving. Patient wants to be discharged home. 05/23/2018 Patient still having atrial fibrillation. Was started on amiodarone drip as per cardiology. If the patient does not convert to sinus rhythm, planning for cardioversion. Patient denied any complains of chest pain or shortness of breath. Says he is feeling well. No fever no chills. No overnight acute issues. 05/24/2018 Patient is still having intermittent atrial flutter. Continued on amiodarone. If the patient does not convert cardiology is planning for cardioversion tomorrow. Otherwise patient denied any complaints of chest pain or shortness of breath. No nausea vomiting or abdominal pain. Tolerating oral diet. Discussed with family at bedside in detail. Patient is a poor historian due to dysarthria and previous history of CVA Current medications reviewed. Active Medications Objective - Vital Signs Vital signs: Vital Signs Temp 97.7 F 05/24/18 11:45 Pulse 63 05/24/18 11:45 Resp 18 05/24/18 11:45 BP 102/65 05/24/18 11:45 Pulse Ox 97 05/24/18 11:45 Intake & Output 05/23/18 05/24/18 05/24/18 18:59 06:59 18:59 Intake Total 1158.5 250 240 Output Total 400 200 Balance 758.5 50 240 Weight 83 kg Intake: IV 100 cefTRIAXone 1,000 mg In 100 Sodium Chloride 0.9% 50 ml @ 100 mls/hr IVPB Q24HR ANNA Rx#:[id number] Intake, IV Titration 224.5 250 Amount Amiodarone 450 mg In 250 Dextrose 5% in Water 250 ml @ 1 MG/MIN 33.33 mls/ hr IV .Q7H31M ANNA Rx#: [id number] Dextrose 5% in Water 100 99 ml @ 618 mls/hr IV .Q10M ONE with Amiodarone 150 mg Rx#:[id number] Diltiazem 50 mg In Sodium 80 Chloride 0.9% 40 ml @ 10 MG/HR 10 mls/hr IV .Q5H ANNA Rx#:[id number] Diltiazem 50 mg In Sodium 45.5 Chloride 0.9% 40 ml @ 10 MG/HR 10 mls/hr IV .Q5H ANNA Rx#:[id number] Oral 834 240 Output: Urine 400 200 Other: Voiding Method Ileal Conduit (Right) Ileal Conduit (Right) Ileal Conduit ( Right) # Voids 0 # Bowel Movements 1 - Exam PHYSICAL EXAMINATION: Patient is lying in the bed comfortably, no acute distress, awake alert and oriented but cannot communicate.. HEENT: Normocephalic. Neck is supple. Pupils reactive. Nostrils clear. Oral cavity is moist. Ears reveal no drainage. Neck reveals no JVD, carotid bruits, or thyromegaly. CHEST EXAMINATION: Trachea is central. Symmetrical expansion. Bibasilar diminished air entry. Lung min clear to auscultation and percussion. CARDIAC: Normal S1, S2 with no gallops. No murmurs ABDOMEN: Soft. Bowel sounds normal. No organomegaly. No abdominal bruits. Extremities: reveal no edema. No clubbing or cyanosis Neurologically awake, alert and oriented,. Right-sided weakness. Dysarthria. Skin: No rash or skin lesions. Psychiatric: Coperative. Could not be assessed completely. Musculoskeletal: No joint swelling or deformity. Normal range of motion. - Labs CBC & Chem 7: 05/21/18 05:42 05/23/18 08:55 Labs: Abnormal Lab Results - Last 24 Hours (Table) 05/23/18 05/23/18 05/24/18 Range/Units 16:51 20:49 06:14 POC Glucose (mg/dL) 151 H 152 H 127 H (75-99) mg/dL 05/24/18 Range/Units 11:45 POC Glucose (mg/dL) 150 H (75-99) mg/dL Assessment and Plan Assessment: Atrial flutter with RVR. Patient was started on amiodarone drip. Cardiology is following. Difficulty in breathing likely due to acute CHF systolic dysfunction. With elevated BNP and pulmonary vascular congestion. Improved now Elevated troponin level. Unlikely ACS. Possible right lower lobe pneumonia Lactic acidosis. Resolved Chronic atrial fibrillation on anticoagulation Coronary artery disease history of stent placement and CABG History of CVA with right-sided weakness and dysarthria. Diabetes type 2 [id number]-xfwbumcwv GERD Hyperlipidemia Hypertension History of [place] DVT prophylaxis. Patient is already on full anticoagulation. Plan: Patient will be continued on aspirin, metoprolol and losartan. Patient will be continued on Lasix changed to by mouth.. Empiric antibiotics. Follow up troponin trends.. Insulin sliding scale. Continue with Amaryl and hold metformin due to lactic acidosis. Follow-up renal function. Continue with home medications and further recommendations based on the clinical course. Cardiology is on board. 2-D echocardiogram was ordered. Ejection fraction showed 30-35% Current CODE STATUS is DO NOT RESUSCITATE/DO NOT INTUBATE. Time with Patient: Greater than 30
[2018-05-25] MEDS: DEXTROSE 5% IN WATER 250 ML with AMIODARONE 450 MG IV SCH (05:31)
[2018-05-25] MEDS: PANTOPRAZOLE 40 MG TABLET PO SCH (06:04)
[2018-05-25] MEDS: CALCIUM CARB-VIT D 500MG-200UN 1 EACH TAB PO SCH (06:04)
[2018-05-25] MEDS: APIXABAN 5 MG TAB PO SCH ×2 (06:04→20:16)
[2018-05-25] MEDS: VALSARTAN 160 MG TAB PO SCH (06:04)
[2018-05-25] MEDS: FUROSEMIDE 40 MG TAB PO SCH (06:04)
[2018-05-25] MEDS: ISOSORBIDE MONONITRATE ER 30 MG TAB.ER.24H PO SCH (06:04)
[2018-05-25 06:05] LABS: Glucose,Whole Blood 127 mg/dL (75-99)
[2018-05-25] MEDS: INSULIN ASPART 100 UNIT/ML 1 ML 10 ML VIAL SQ SCH ×4 (06:06→20:16)
[2018-05-25 06:29] LABS: Basophils % (A) 0 %; Eosinophils # (A) 0.2 k/uL (0-0.7); Eosinophils % (A) 2 %; HCT 38.2 % (39.0-53.0); HGB 12.4 gm/dL (13.0-17.5); Lymphocytes # (A) 2.1 k/uL (1.0-4.8); Lymphocytes % (A) 24 %; MCH 31.1 pg (25.0-35.0); MCHC 32.4 g/dL (31.0-37.0); MCV 95.9 fL (80.0-100.0); Mean Platelet Volume 6.8; Monocytes # (A) 0.6 k/uL (0-1.0); Monocytes % (A) 7 %; Neutrophils # (A) 5.8 k/uL (1.3-7.7); Neutrophils % (A) 65 %; Platelet Count 293 k/uL (150-450); RBC 3.99 m/uL (4.30-5.90); RDW 13.7 % (11.5-15.5); WBC 8.8 k/uL (3.8-10.6)
[2018-05-25 06:38] LABS: Calcium 9.4 mg/dL (8.4-10.2); Potassium 4.7 mmol/L (3.5-5.1)
[2018-05-25] MEDS: GLIMEPIRIDE 1 MG TAB PO SCH (07:04)
[2018-05-25] MEDS ORDERED: SODIUM CHLORIDE 0.9% 500 ML 500 ML IV ONE ×3 (08:24→09:00)
[2018-05-25] MEDS ORDERED: PROPOFOL 10 MG/ML 20 ML VIAL IV ONE (08:48)
[2018-05-25] MEDS ORDERED: ePHEDrine SULFATE/0.9% NACL/PF 50 MG/5 ML SYRINGE IV ONE (08:48)
--- NOTE | 2018-05-25 09:09 | P.PCN ---
Preoperative Diagnosis: Diagnosis Atrial tachycardia/atrial flutter with tachybradycardia syndrome and episodes of RVR despite IV amiodarone and oral beta blockers This morning his heart rate was in the 50s and seemed regular but the 12-lead ECG showed an atrial tachycardia with a slow ventricular response in the 50s Therefore we proceeded with electrical cardioversion Procedure Electrical cardioversion on ELIQUIS and after IV amiodarone loading. Metoprolol was held this morning Procedure details Successful electrical cardioversion with 100 J biphasic shock Twelve-lead ECG following the procedure confirmed sinus rhythm with a prolonged LA interval, heart rate in the 50s and 60s with occasional PACs and PVCs Suggest Start oral amiodarone 200 mg by mouth daily Hold metoprolol today and we'll reassess tomorrow and start at a lower dose Twelve-lead ECG tomorrow
[2018-05-25] MEDS ORDERED: AMIODARONE 200 MG TAB PO SCH (10:15)
[2018-05-25] MEDS: METOPROLOL SUCCINATE (ER) 50 MG TAB.ER.24H PO SCH (10:35)
[2018-05-25 11:37] LABS: Glucose,Whole Blood 173 mg/dL (75-99)
[2018-05-25] MEDS ORDERED: METOPROLOL SUCCINATE (ER) 50 MG TAB.ER.24H PO STA (12:13)
[2018-05-25 16:30] LABS: Glucose,Whole Blood 154 mg/dL (75-99)
[2018-05-25] MEDS: AMIODARONE 200 MG TAB PO SCH (20:16)
[2018-05-25 20:25] LABS: Glucose,Whole Blood 138 mg/dL (75-99)
--- NOTE | 2018-05-25 23:56 | P.PN ---
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 Patient was also having cough with some clear sputum production. Denied any chest pain. No fever no chills. No nausea vomiting or abdominal pain. No leg swelling. Patient has been having runny nose since stroke but no new changes noted. No nausea vomiting or diarrhea. Patient had chest x-ray done at [facility] showed possible pneumonia. Linear scarring or atelectasis is present at the lung bases. EKG showed atrial fibrillation. Patient does follow with cardiology as an outpatient with Dr. Burgos. Patient was also given a dose of antibiotics at [facility] and transferred to [facility] due to slightly elevated troponin level. BNP was 8622. Troponin 0.435, BUN and 19 and creatinine 1.5, lactic acid level III.7, d- dimer level 0.4 and 1 not elevated, WBC 10.5 hemoglobin 13.7 and platelets 331 Patient was given a dose of ceftriaxone and blood cultures were sent at [facility]. Due to elevated troponin level and possible CHF patient was transferred to [facility] for further evaluation by cardiology. Influenza antigen negative. chest x-ray showed pulmonary venous congestion without overt heart failure. Chronic changes. No acute changes noted. 05/21/2018 Patient denied any complaints of chest pain. Breathing status is improved. Part spreading in physical therapy. IV Lasix has been changed to 40 mg of Lasix by mouth. Patient is being continued on IV antibiotics for possible pneumonia as well. 2-D echocardiogram was done. Otherwise no acute overnight issues. Overall clinically improving. Troponin level is trending down and lactic acidosis resolved. Tolerating oral diet. 05/22/2018 Patient denied any complaints of chest pain or shortness of breath. Part spreading in physical therapy. Heart rate is better controlled. Otherwise patient was found have atrial fibrillation and the telemetry monitoring. Metoprolol has been changed to Toprol-XL per cardiology. Continued on empiric antibiotics. Overall clinically improving. Patient wants to be discharged home. 05/23/2018 Patient still having atrial fibrillation. Was started on amiodarone drip as per cardiology. If the patient does not convert to sinus rhythm, planning for cardioversion. Patient denied any complains of chest pain or shortness of breath. Says he is feeling well. No fever no chills. No overnight acute issues. 05/24/2018 Patient is still having intermittent atrial flutter. Continued on amiodarone. If the patient does not convert cardiology is planning for cardioversion tomorrow. Otherwise patient denied any complaints of chest pain or shortness of breath. No nausea vomiting or abdominal pain. Tolerating oral diet. Discussed with family at bedside in detail. 05/25/2018 Patient had cardioversion today. Patient was flipped back to atrial flutter with fever. Cardiology has started on amiodarone drip. Otherwise patient denied any complaints of chest pain or shortness of breath. No nausea vomiting or abdominal pain. Denied any dizziness. Discussed with patients daughter at bedside. Patient is a poor historian due to dysarthria and previous history of CVA Current medications reviewed. Active Medications Objective - Vital Signs Vital signs: Vital Signs Temp 97.5 F L 05/25/18 20:00 Pulse 67 05/25/18 20:00 Resp 18 05/25/18 20:00 BP 118/65 05/25/18 20:00 Pulse Ox 98 05/25/18 20:00 Intake & Output 05/25/18 05/25/18 05/26/18 06:59 18:59 06:59 Intake Total 576 250 Output Total 900 1750 Balance -900 -1174 250 Weight 83.5 kg Intake: IV 200 10 Invasive Line 2 10 cefTRIAXone 1,000 mg In 50 Sodium Chloride 0.9% 50 ml @ 100 mls/hr IVPB Q24HR ANNA Rx#:[id number] Intake, IV Titration 16 Amount Dextrose 5% in Water 250 16 ml @ 16.6 mls/hr IV . [id number] ANNA with Amiodarone 450 mg Rx#: [id number] Oral 360 240 Output: Urine 900 1750 Other: Voiding Method Ileal Conduit (Right) Ileal Conduit (Right) Ileal Conduit ( Right) - Exam PHYSICAL EXAMINATION: Patient is lying in the bed comfortably, no acute distress, awake alert and oriented but cannot communicate.. HEENT: Normocephalic. Neck is supple. Pupils reactive. Nostrils clear. Oral cavity is moist. Ears reveal no drainage. Neck reveals no JVD, carotid bruits, or thyromegaly. CHEST EXAMINATION: Trachea is central. Symmetrical expansion. Bibasilar diminished air entry. Lung min clear to auscultation and percussion. CARDIAC: Normal S1, S2 with no gallops. No murmurs ABDOMEN: Soft. Bowel sounds normal. No organomegaly. No abdominal bruits. Extremities: reveal no edema. No clubbing or cyanosis Neurologically awake, alert and oriented,. Right-sided weakness. Dysarthria. Skin: No rash or skin lesions. Psychiatric: Coperative. Could not be assessed completely. Musculoskeletal: No joint swelling or deformity. Normal range of motion. - Labs CBC & Chem 7: 05/25/18 06:11 05/25/18 06:11 Labs: Abnormal Lab Results - Last 24 Hours (Table) 05/25/18 05/25/18 05/25/18 Range/Units 06:00 06:11 06:11 RBC 3.99 L (4.30-5.90) m/uL Hgb 12.4 L (13.0-17.5) gm/dL Hct 38.2 L (39.0-53.0) % Sodium 136 L (137-145) mmol/L BUN 31 H (9-20) mg/dL Creatinine 1.52 H (0.66-1.25) mg/dL Glucose 137 H (74-99) mg/dL POC Glucose (mg/dL) 127 H (75-99) mg/dL 05/25/18 05/25/18 05/25/18 Range/Units 11:14 16:25 20:14 RBC (4.30-5.90) m/uL Hgb (13.0-17.5) gm/dL Hct (39.0-53.0) % Sodium (137-145) mmol/L BUN (9-20) mg/dL Creatinine (0.66-1.25) mg/dL Glucose (74-99) mg/dL POC Glucose (mg/dL) 173 H 154 H 138 H (75-99) mg/dL Assessment and Plan Assessment: Atrial flutter with RVR. Patient was started on amiodarone drip. Cardiology is following. Difficulty in breathing likely due to acute CHF systolic dysfunction. With elevated BNP and pulmonary vascular congestion. Improved now Elevated troponin level. Unlikely ACS. Possible right lower lobe pneumonia Lactic acidosis. Resolved Chronic atrial fibrillation on anticoagulation Coronary artery disease history of stent placement and CABG History of CVA with right-sided weakness and dysarthria. Diabetes type 2 dst-jxojvmx-vbbqcofxf GERD Hyperlipidemia Hypertension History of [place] DVT prophylaxis. Patient is already on full anticoagulation. Plan: Patient will be continued on aspirin, metoprolol and losartan. Patient will be continued on Lasix changed to by mouth.. Empiric antibiotics. Follow up troponin trends.. Insulin sliding scale. Continue with Amaryl and hold metformin due to lactic acidosis. Follow-up renal function. Continue with home medications and further recommendations based on the clinical course. Cardiology is on board. 2-D echocardiogram was ordered. Ejection fraction showed 30-35% Current CODE STATUS is DO NOT RESUSCITATE/DO NOT INTUBATE. Time with Patient: Greater than 30
[2018-05-26 03:08] VITALS: RESP 20
[2018-05-26 05:59] LABS: Glucose,Whole Blood 115 mg/dL (75-99)
[2018-05-26] MEDS: INSULIN ASPART 100 UNIT/ML 1 ML 10 ML VIAL SQ SCH ×2 (06:01→12:40)
[2018-05-26] MEDS: PANTOPRAZOLE 40 MG TABLET PO SCH (06:23)
[2018-05-26] MEDS: GLIMEPIRIDE 1 MG TAB PO SCH (06:24)
[2018-05-26] MEDS: CALCIUM CARB-VIT D 500MG-200UN 1 EACH TAB PO SCH (08:15)
[2018-05-26] MEDS: VALSARTAN 160 MG TAB PO SCH (08:15)
[2018-05-26] MEDS: AMIODARONE 200 MG TAB PO SCH (08:15)
[2018-05-26] MEDS: ISOSORBIDE MONONITRATE ER 30 MG TAB.ER.24H PO SCH (08:15)
[2018-05-26] MEDS: APIXABAN 5 MG TAB PO SCH (08:15)
[2018-05-26] MEDS: FUROSEMIDE 40 MG TAB PO SCH (08:15)
[2018-05-26] MEDS ORDERED: METOPROLOL SUCCINATE (ER) 50 MG TAB.ER.24H PO SCH (09:00)
[2018-05-26 12:18] LABS: Glucose,Whole Blood 144 mg/dL (75-99)
[2018-05-26 12:38] VITALS: BP 99/61; PULSE 65; TEMP 98.1
--- NOTE | 2018-05-26 13:03 | P.PN ---
Subjective Mr. Corey is resting comfortably in bed. He remains an atrial tachycardia/ atrial flutter and heart rates ranged from 5240 beats a minute on oral amiodarone now 40 mg by mouth daily. So far he is been on 50 mrem of Toprol-XL once daily in the morning but his heart rate does shoot up 240 beats a minute although he is minimally symptomatic No chest discomfort does not appear to be short of breath On examination he is afebrile 98.1F pulse rate is in the 50s and 60s currently blood pressure 123/75 mmHg Heart sounds are irregular no S3 gallop Breath sounds are reduced bilaterally but there are no rhonchi no crackles reduced inspiratory effort line abdomen soft nontender And extend his warm no edema Impression Persistent atrial tachycardia/atrial flutter, status post electrical cardioversion status post recurrence within a few hours despite IV amiodarone loading Tachybradycardia syndrome Suggest Continue ELIQUIS now at a lower dose of 2.5 g twice daily. I increased the dose of ELIQUIS 25 g twice daily Jazmin cardioversion but I would reduce it back to 2.5 g twice daily now at discharge Increase metoprolol succinate to 75 mg daily Amiodarone 400 mg by mouth daily for a month and then 200 mg thereafter for another month and then 100 mg from then on He may go home and [facility] Objective - Vital Signs Vital signs: Vital Signs Temp 98.1 F 05/26/18 12:00 Pulse 65 05/26/18 12:00 Resp 20 05/26/18 12:00 BP 99/61 05/26/18 12:00 Pulse Ox 97 05/26/18 12:00 Intake & Output 05/25/18 05/26/18 05/26/18 18:59 06:59 18:59 Intake Total 576 250 240 Output Total 1700 650 Balance -1124 -400 240 Weight 83.5 kg Intake: IV 200 10 Invasive Line 2 10 cefTRIAXone 1,000 mg In 50 Sodium Chloride 0.9% 50 ml @ 100 mls/hr IVPB Q24HR ANNA Rx#:[id number] Intake, IV Titration 16 Amount Dextrose 5% in Water 250 16 ml @ 16.6 mls/hr IV . [id number] ANNA with Amiodarone 450 mg Rx#: [id number] Oral 360 240 240 Output: Urine 1700 650 Other: Voiding Method Ileal Conduit (Right) Ileal Conduit (Right) Ileal Conduit ( Right) - Labs CBC & Chem 7: 05/25/18 06:11 05/25/18 06:11 Labs: Abnormal Lab Results - Last 24 Hours (Table) 05/25/18 05/25/18 05/26/18 Range/Units 16:25 20:14 05:58 POC Glucose (mg/dL) 154 H 138 H 115 H (75-99) mg/dL 05/26/18 Range/Units 11:55 POC Glucose (mg/dL) 144 H (75-99) mg/dL
--- NOTE | 2018-06-02 21:56 | P.DS ---
Providers Date of admission: 05/20/18 08:01 Expected date of discharge: 05/26/18 Attending physician: Holden Camacho Consults: 05/20/18 08:41 Consult Physician Urgent Consulting Provider: Lachelle Childress Consult Reason/Comments: CHF, elevated troponin Do you want consulting provider notified?: Yes Placement Type Exists?: Yes Primary care physician: Stated None Hospital Course: Discharge diagnosis Atrial flutter with RVR. Patient was on amiodarone drip. Status post cardioversion. Patient is back into a flutter . Cardiology recommends medical management.. Difficulty in breathing likely due to acute CHF systolic dysfunction. With elevated BNP and pulmonary vascular congestion. Improved now Elevated troponin level. Unlikely ACS. Possible right lower lobe pneumonia Lactic acidosis. Resolved Chronic atrial fibrillation on anticoagulation Coronary artery disease history of stent placement and CABG History of CVA with right-sided weakness and dysarthria. Diabetes type 2 [id number]-nrpmkhekh GERD Hyperlipidemia Hypertension History of NH DVT prophylaxis. Patient is already on full anticoagulation. Hospital course Patient is a 88-year-old male with a known history of CVA with residual right- sided weakness and dysarthria 5 years ago, chronic atrial fibrillation on anticoagulation, coronary artery disease, CABG and stent placement, hypertension , hyperlipidemia and diabetes type 2 [id number] initially presented to [facility] with her daughter due to complaints of difficulty in breathing. Patient was also having cough with some clear sputum production. Denied any chest pain. No fever no chills. No nausea vomiting or abdominal pain. No leg swelling. Patient has been having runny nose since stroke but no new changes noted. No nausea vomiting or diarrhea. Patient had chest x-ray done at [facility] showed possible pneumonia. Linear scarring or atelectasis is present at the lung bases. EKG showed atrial fibrillation. Patient does follow with cardiology as an outpatient with Dr. Burgos. Patient was also given a dose of antibiotics at [facility] and transferred to [facility] due to slightly elevated troponin level. BNP was 8622. Troponin 0.435, BUN and 19 and creatinine 1.5, lactic acid level III.7, d- dimer level 0.4 and 1 not elevated, WBC 10.5 hemoglobin 13.7 and platelets 331 Patient was given a dose of ceftriaxone and blood cultures were sent at [facility]. Due to elevated troponin level and possible CHF patient was transferred to [facility] for further evaluation by cardiology. Influenza antigen negative. chest x-ray showed pulmonary venous congestion without overt heart failure. Chronic changes. No acute changes noted. 05/21/2018 Patient denied any complaints of chest pain. Breathing status is improved. Part spreading in physical therapy. IV Lasix has been changed to 40 mg of Lasix by mouth. Patient is being continued on IV antibiotics for possible pneumonia as well. 2-D echocardiogram was done. Otherwise no acute overnight issues. Overall clinically improving. Troponin level is trending down and lactic acidosis resolved. Tolerating oral diet. 05/22/2018 Patient denied any complaints of chest pain or shortness of breath. Part spreading in physical therapy. Heart rate is better controlled. Otherwise patient was found have atrial fibrillation and the telemetry monitoring. Metoprolol has been changed to Toprol-XL per cardiology. Continued on empiric antibiotics. Overall clinically improving. Patient wants to be discharged home. 05/23/2018 Patient still having atrial fibrillation. Was started on amiodarone drip as per cardiology. If the patient does not convert to sinus rhythm, planning for cardioversion. Patient denied any complains of chest pain or shortness of breath. Says he is feeling well. No fever no chills. No overnight acute issues. 05/24/2018 Patient is still having intermittent atrial flutter. Continued on amiodarone. If the patient does not convert cardiology is planning for cardioversion tomorrow. Otherwise patient denied any complaints of chest pain or shortness of breath. No nausea vomiting or abdominal pain. Tolerating oral diet. Discussed with family at bedside in detail. 05/25/2018 Patient had cardioversion today. Patient was flipped back to atrial flutter with fever. Cardiology has started on amiodarone drip. Otherwise patient denied any complaints of chest pain or shortness of breath. No nausea vomiting or abdominal pain. Denied any dizziness. Discussed with patients daughter at bedside. 05/26/2018 Patient is into atrial flutter on and off. Cardiology recommends to continue with medical management at this time. Patient is symptomatic. Otherwise no complaints of chest pain or shortness of breath. Patient completed antibiotic course for possible pneumonia. Stable to be discharged home with family. Physical examination PHYSICAL EXAMINATION: Patient is lying in the bed comfortably, no acute distress, awake alert and oriented but cannot communicate.. HEENT: Normocephalic. Neck is supple. Pupils reactive. Nostrils clear. Oral cavity is moist. Ears reveal no drainage. Neck reveals no JVD, carotid bruits, or thyromegaly. CHEST EXAMINATION: Trachea is central. Symmetrical expansion. Lung min clear to auscultation and percussion. CARDIAC: Normal S1, S2 with no gallops. No murmurs ABDOMEN: Soft. Bowel sounds normal. No organomegaly. No abdominal bruits. Extremities: reveal no edema. No clubbing or cyanosis Neurologically awake, alert and oriented,. Right-sided weakness. Dysarthria. Skin: No rash or skin lesions. Psychiatric: Coperative. Could not be assessed completely. Musculoskeletal: No joint swelling or deformity. Normal range of motion. Discharge vitals reviewed. Total time taken greater than 35 minutes including 18 minutes for counseling and coordination of care. Patient Condition at Discharge: Fair Plan - Discharge Summary Discharge Rx Participant: Yes New Discharge Prescriptions: New Amiodarone [Cordarone] 200 mg PO BID #60 tab Apixaban [Eliquis] 5 mg PO BID #60 tab Furosemide [Lasix] 40 mg PO DAILY #30 tab Metoprolol Succinate (ER) [Toprol XL] 50 mg PO DAILY #30 tab.er.24h Metoprolol Succinate (ER) [Toprol Xl] 25 mg PO DAILY #30 tab Continue Isosorbide Mononitrate ER [Imdur] 30 mg PO DAILY Omeprazole Magnesium [PriLOSEC OTC] 20 mg PO DAILY metFORMIN HCL 500 mg PO HS Glimepiride [Amaryl] 1 mg PO RUST Valsartan [Diovan] 160 mg PO DAILY Cholecalciferol [Vitamin D3] 1,000 unit PO DAILY Albuterol Nebulized [Ventolin Nebulized] 2.5 mg INHALATION RT-Q6H PRN PRN Reason: Shortness Of Breath Discontinued Apixaban [Eliquis] 2.5 mg PO BID #1 tab Metoprolol Tartrate [Lopressor] 25 mg PO BID Discharge Medication List Albuterol Nebulized [Ventolin Nebulized] 2.5 mg INHALATION RT-Q6H PRN 05/20/18 [ History] Cholecalciferol [Vitamin D3] 1,000 unit PO DAILY 05/20/18 [History] Glimepiride [Amaryl] 1 mg PO [id number] 05/20/18 [History] Isosorbide Mononitrate ER [Imdur] 30 mg PO DAILY 05/20/18 [History] Omeprazole Magnesium [PriLOSEC OTC] 20 mg PO DAILY 05/20/18 [History] Valsartan [Diovan] 160 mg PO DAILY 05/20/18 [History] metFORMIN HCL 500 mg PO HS 05/20/18 [History] Amiodarone [Cordarone] 200 mg PO BID #60 tab 05/26/18 [Rx] Apixaban [Eliquis] 5 mg PO BID #60 tab 05/26/18 [Rx] Furosemide [Lasix] 40 mg PO DAILY #30 tab 05/26/18 [Rx] Metoprolol Succinate (ER) [Toprol XL] 50 mg PO DAILY #30 tab.er.24h 05/26/18 [Rx ] Metoprolol Succinate (ER) [Toprol Xl] 25 mg PO DAILY #30 tab 05/26/18 [Rx] Follow up Appointment(s)/Referral(s): [facility] [NON-STAFF] - Shyam Jeter MD [STAFF PHYSICIAN] - 06/20/18 4:15 pm () Patient Instructions/Handouts: Atrial Tachycardia (DC) Activity/Diet/Wound Care/Special Instructions: Eliquis covered with $40 copay - still need Rx at discharge Discharge Disposition: HOME WITH HOME HEALTH SERVICES
== END 2018-05-26 15:22 | disposition home health service (06) | DRG 291 ==
LOC: 3SCARD 08:01
PROVIDERS: ADMIT Internal Medicine; ATTEND Internal Medicine
PROC: 5A2204Z Restoration of Cardiac Rhythm, Single (ICD-10-PCS; principal; 2018-05-25 08:30)
DX: I11.0 Hypertensive heart disease with heart failure (principal); I50.21 Acute systolic (congestive) heart failure; J18.9 Pneumonia, unspecified organism; I48.92 Unspecified atrial flutter; E87.2 Acidosis; I69.351 Hemiplegia and hemiparesis following cerebral infarction affecting right dominant side; I47.1 Supraventricular tachycardia; I45.2 Bifascicular block; I49.5 Sick sinus syndrome; E11.9 Type 2 diabetes mellitus without complications; E78.5 Hyperlipidemia, unspecified; I25.10 Atherosclerotic heart disease of native coronary artery without angina pectoris; I25.5 Ischemic cardiomyopathy; I48.2 Chronic atrial fibrillation; K21.9 Gastro-esophageal reflux disease without esophagitis; Z66 Do not resuscitate; I25.2 Old myocardial infarction; Z95.1 Presence of aortocoronary bypass graft; Z95.5 Presence of coronary angioplasty implant and graft; Z85.51 Personal history of malignant neoplasm of bladder; Z87.01 Personal history of pneumonia (recurrent); Z86.19 Personal history of other infectious and parasitic diseases; I69.322 Dysarthria following cerebral infarction; Z79.01 Long term (current) use of anticoagulants; Z79.84 Long term (current) use of oral hypoglycemic drugs; Z79.899 Other long term (current) drug therapy; Z82.49 Family history of ischemic heart disease and other diseases of the circulatory system; Z83.3 Family history of diabetes mellitus
CPT/HCPCS: 71045; 80048; 82550; 82553; 83036; 83605; 83735; 84443; 84484; 85025; 92960; 93306